=== PATIENT | male | born 1940 | race Caucasian/White ===

== ENCOUNTER → 2017-01-24 11:00 | Outpatient (CLI) | payer MEDICARE ==
[2016-03-03 09:07] VITALS: BMI 34.5
[~2017-01-24 11:00] MED LIST: ALTOPREV40 MG PO; ATIVAN0.5 MG PO; BACLOFEN10 MG PO; BUSPAR10 MG PO; BYSTOLIC10 MG PO; CHLOR-TRIMETON12 MG PO; CHLOR-TRIMETON4 MG PO; CLARITIN 10 MG10 MG; COZAAR100 MG PO; CYMBALTA60 MG PO; DUONEB 2.5-0.5 M3 ML UPD; FERROUS SULFAT325 MG PO; FIORICET W/CODE1 CA1 PO; FLOMAX0.4 MG PO; FLOVENT HFA 410.6 GM INH; HYDROCHLOROTHIA25 MG PO; IBUPROFEN600 MG PO; INDERAL10 MG PO; IPRAT-ALBUT 0.5-3 ML UPD; KLOR-CON M1515 MEQ PO; LASIX40 MG PO; LEVAQUIN500 MG PO; LODINE200 MG PO; LODINE500 MG PO; LOPRESSOR50 MG PO; LOTRISONE CREAM45 GM TP; MEDROL DOSE PACK4 MG PO; MIRALAX17 GM PO; MYSOLINE 50 MG50 MG PO; PRAVACHOL20 MG PO; PREDNISONE10 MG PO; PREDNISONE5 MG PO; PRILOSEC20 MG PO; PROSCAR5 MG PO; PROVENTIL/2.5 MG/3 M INH; RESTORIL15 MG PO; ROBAXIN-750750 MG PO; SINEMET 25/1001 TAB PO; SYMBICORT 16010.2 GM INH; TOPAMAX100 MG PO; TOPROL XL50 MG PO; ULTRAM50 MG PO; VOLTAREN100 MG PO; XANAX1 MG PO; ZOLOFT100 MG PO
== END | disposition home or self-care (01) ==
LOC: D.MRI 11:00
DX: M47.16 Other spondylosis with myelopathy, lumbar region (principal)

== ENCOUNTER 2018-01-15 05:53 | Day surgery (SDC) | payer MEDICARE ==
[2018-01-14 11:33] LABS: HEMATOCRIT 49.1 % (42.0-54.0); HEMOGLOBIN 16.7 g/dL (13.5-17.5); MCH 31.4 pg (26.0-34.0); MCV 92.3 fL (80.0-100.0); MEAN PLATELET VOLUME 10.7 fL (7.4-10.4); RBC 5.32 10x6/uL (4.20-6.10); RDW 13.1 % (11.5-14.5)
[~2018-01-15] VITALS: Ht 190.5 cm; Wt 127.0 kg
--- NOTE | ~2018-01-15 | OP ---
PATIENT NAME: SEVERIANO VIRK MEDICAL RECORD: [id number] :40 LOCATION:[facility] ADMISSION DATE: SURGEON: RICCI SAXENA DO DATE OF OPERATION: 01/15/2018 PROCEDURE PERFORMED: Left foot ganglion excision and removal. PREOPERATIVE DIAGNOSIS: Left foot ganglion cyst. POSTOPERATIVE DIAGNOSIS: Left foot ganglion cyst. INDICATIONS: Mr. Virk is a 77-year-old male who has had a left foot ganglion removed sometime ago, came back as he was warned it would, came back quite large. It was aspirated in my office by the nurse practitioner and then that returned a few months later. He said he did not want to deal with it and I do not have to keep that being aspirated and so he wanted that removed surgically. I warned him that it would probably come back again, but we will try to get it out this time. He was okay with that and was informed of the risks and benefits of the procedure including infection, bleeding, numbness in the foot and the biggest thing that it would return. He was okay with this and he consented to the procedure. SURGEON: Ricci Saxena DO TOURNIQUET TIME: 17 minutes. COMPLICATIONS: None. DESCRIPTION OF PROCEDURE: The patient was taken to the operative suite, laid in supine position. Left lower extremity was prepped and draped in sterile fashion with a tourniquet in the mid calf under the drapes. Once this was done, a timeout was performed. The patient received 2 grams of Ancef preoperatively, was sedated. LMA was placed prior to being prepped and draped. After the prep and drape was done, timeout was performed. The incision was marked out over the lateral foot on the dorsum over the cyst. Incision then commenced through the skin with a 15 blade down to the inferior extensor retinaculum and this was incised. The ganglion cyst ruptured as it was quite large, running the extensor tendon sheaths, what was found of the cyst was removed and then dissection was made down to the mid foot joint where there was a rent in the capsule, seen from the mid foot joint. This was closed with 2-0 Vicryl in a [id number] fashion, seen to have good closure with no synovial fluid leaking out after the closure hoping to resolve the cyst. The cyst had been tracking up and down the extensor tendon sheath. After this was done, the wound was irrigated and the inferior extensor retinaculum was closed with 0 Vicryl in [id number] fashion and then reapproximated rather and the skin was closed with 3-0 Vicryl in inverted interrupted fashion and 4-0 Monocryl was used on the skin with a horizontal mattress technique. The tourniquet was let down at 17 minutes. Blood loss was minimal. After this, Adaptic, 4 x 4s and Fly wrap were placed over the incision. The patient was awakened and taken to recovery in stable condition. TRANSINT:[id number] Voice Confirmation ID: [id number] DOCUMENT ID: [id number] OPERATIVE REPORT [id number] SEVERIANO VIRK,RICCI Roach DO at 1422 CC: [id number] DICTATION DATE: 01/15/18 0942 [employer] SET UP WORKER: 01/15/18 1127 [facility] 01/15/18 [facility] [address] [place] [address]
[2018-01-15] MEDS ORDERED: BACLOFEN10 MG PO (07:45)
[2018-01-15] MEDS ORDERED: GABAPENTIN100 MG PO (07:52)
[2018-01-15] MEDS ORDERED: HYDROCODONE-APA1 TAB (07:52)
[2018-01-15 08:01] VITALS: BP 165/105; Ht 190.5 cm; Wt 127.0 kg
[2018-01-15] MEDS ORDERED: HYDROCODONE-APA1 TAB PO (09:37)
== END 2018-01-15 11:20 | disposition home or self-care (01) ==
LOC: D.OPS 05:53
PROVIDERS: Anesthesiology
DX: M67.472 Ganglion, left ankle and foot (principal); F17.200 Nicotine dependence, unspecified, uncomplicated; I10 Essential (primary) hypertension; J44.9 Chronic obstructive pulmonary disease, unspecified; K21.9 Gastro-esophageal reflux disease without esophagitis; E66.01 Morbid (severe) obesity due to excess calories; Z68.35 Body mass index [BMI] 35.0-35.9, adult

== ENCOUNTER → 2018-11-27 10:23 | Outpatient (CLI) | payer MEDICARE ==
[2018-01-15 08:01] VITALS: BMI 35.0
[~2018-11-27 10:23] MED LIST changes: +GABAPENTIN100 MG PO; +HYDROCODONE-APA1 TAB; +HYDROCODONE-APA1 TAB PO
== END | disposition home or self-care (01) ==
LOC: D.RAD 10:23
DX: J44.9 Chronic obstructive pulmonary disease, unspecified (principal)

== ENCOUNTER → 2019-04-25 08:13 | Outpatient (CLI) | payer MEDICARE ==
[2018-01-15 08:01] VITALS: BMI 35.0
== END | disposition home or self-care (01) ==
LOC: D.RT 08:00
PROVIDERS: ATTEND Internal Medicine Pulmonary Disease
DX: J44.9 Chronic obstructive pulmonary disease, unspecified (principal)

== ENCOUNTER 2020-06-28 08:00 | Outpatient (CLI) | payer MEDICARE ==
[2018-01-15 08:01] VITALS: BMI 35.0
== END 2020-06-28 08:01 ==
LOC: D.CT 08:00 → D.RT 14:00
PROVIDERS: ATTEND Internal Medicine Pulmonary Disease
DX: Z11.59 Encounter for screening for other viral diseases (principal); J44.9 Chronic obstructive pulmonary disease, unspecified

== ENCOUNTER → 2021-03-21 15:08 | Outpatient (CLI) | payer MEDICARE ==
[2018-01-15 08:01] VITALS: BMI 35.0
== END | disposition home or self-care (01) ==
LOC: D.LAB 15:08 → D.RAD 15:08
PROVIDERS: ATTEND Pain Medicine Interventional Pain Medicine
DX: M25.559 Pain in unspecified hip (principal)